=== PATIENT | female | born 2000 | race Caucasian/White ===

== ENCOUNTER 2022-12-17 01:32 | Emergency (ER) | payer BC, SELFPAY ==
[2022-12-17 01:42] VITALS: BP 131/90; PULSE 105; RESP 24; TEMP 36.7; O2SAT 98
[2022-12-17 02:01] VITALS: BP 109/75; PULSE 96; RESP 20; O2SAT 98
--- NOTE | 2022-12-17 02:06 | CRLHL7_ITS ---
For Patients: As a result of the Century Cures Act, medical imaging exams and procedure reports are released immediately into your electronic medical record. You may view this report before your referring provider. If you have questions, please contact your health care provider. INDICATION: Left flank pain, kidney stone suspected. COMPARISON: None TECHNIQUE: CT examination of the abdomen and pelvis was performed without intravenous contrast. Thin section axial images were obtained from the lung bases through the pubic symphysis. Oral contrast was not administered. Please note that all CT scans at this facility use dose modulation, iterative reconstruction, and/or weight-based dosing when appropriate to reduce radiation dose to as low as reasonably achievable. FINDINGS: LUNG BASES: The lung bases as visualized appear normal.The heart size is normal at the lung bases. LIVER/BILIARY SYSTEM:The liver is normal in size and configuration given the lack of intravenous contrast. There is no visible focal mass and there is no intra- or extra hepatic biliary ductal dilatation.The gall bladder appears normal. ADRENALS: Normal non-contrast appearance KIDNEYS, URETERS and BLADDER:The kidneys are normal in size. No definite intrarenal calculi on the right. There are intrarenal calculi on the left. There is left-sided hydronephrosis and hydroureter due to a calculus at the left ureterovesical junction measuring 2.0 x 4.0 millimeters. SPLEEN:Normal non-contrast appearance. PANCREAS: Normal non-contrast appearance. RETROPERITONEUM and MESENTERY: There is no mass, adenopathy or aortic aneurysm. GASTROINTESTINAL SYSTEM: There is no evidence of diverticulitis, colitis, mechanical obstruction, or appendicitis. The small bowel as visualized appears normal. PELVIS: No mass, adenopathy or free fluid. OSSEOUS STRUCTURES and ABDOMINAL WALL: There is an age-appropriate appearance of the osseous structures.No significant abdominal wall defect. OTHER: No free fluid or free air. IMPRESSION: Left-sided hydronephrosis and hydroureter due to a calculus at the left UVJ measuring 2 x 4 millimeters. Intrarenal calculi on the left. No definite calculi on the right. Please note that all CT scans at this facility use dose modulation, iterative reconstruction, and/or weight-based dosing when appropriate to reduce radiation dose to as low as reasonably achievable. Dictated by Prudencio Locke MD @ 12/17/2022 3:58:47 AM (Electronically Signed)
--- NOTE | 2022-12-17 02:08 | ED.GENADULT ---
HPI - General Adult General Chief complaint: Flank Pain Stated complaint: kidney stone Time Seen by Provider: 12/17/22 01:32 Source: patient and family Mode of arrival: ambulatory History of Present Illness HPI narrative: 21-year-old female with prior history of kidney stones twice in the past presents with left flank pain that started at around 11:45 a.m., worsening at 1:00 a.m.. It is accompanied by nausea but no vomiting. She has not tried taking any medication to help with her symptoms. No fevers. No prior history of kidney injury. First episode was in 2019 she believes it was 4-5 mm and did require lithotripsy and stent placement. She reports that this was through [facility], I do not have access to that CT scan. Her last episode was just over a month ago, states that this was 3 mm in size and resolved without any specialty treatment. She was told that she had additional stones at that time. No fevers, otherwise feeling well. No recent changes in her medications. No additional concerns today. ROS is negative for new gynecological other than her baseline chronic, GI, urinary, generalized or other review of systems times 12 systems per her report. ROS is notable for ADHD, anxiety disorder, chronic vaginal pain. Reports her home medications are amitriptyline, Vyvanse, paroxetine. Allergies to cats and mold but no drugs. Socially she is a nonsmoker. Family history noted and reviewed from the [facility]. Vaccines appropriate up-to-date. Surgical history notable for multiple prior ear infections resulting in T tubes and tympanoplasty. Related Data Home Medications Medication Instructions Recorded Confirmed lisdexamfetamine 10 mg capsule 10 mg PO QAM 11/06/22 12/15/22 (Vyvanse) paroxetine HCl 20 mg tablet (Paxil) 20 mg PO QDAY 11/06/22 12/15/22 Previous Rx's Medication Instructions Recorded ketorolac 10 mg tablet 10 mg PO QID PRN pain 5 days #20 11/06/22 tabs amitriptyline 25 mg tablet 25 mg PO QHS #60 tabs 12/15/22 Allergies Allergy/AdvReac Type Severity Reaction Status Date / Time cat dander Allergy Verified 12/15/22 14:23 mold Allergy Verified 12/15/22 14:23 [facility] Medical History Dysmenorrhea ?N94.6 - Dysmenorrhea, unspecified (ICD-10) Interstitial cystitis ?N30.10 - Interstitial cystitis (chronic) without hematuria (ICD-10) PMDD (premenstrual dysphoric disorder) ?F32.81 - Premenstrual dysphoric disorder (ICD-10) Sterilization consult ?Z30.09 - Encounter for other general counseling and advice on contraception (ICD-10) Vaginal pain ?R10.2 - Pelvic and perineal pain (ICD-10) Social History Smoking Status: Never smoker Do you use any of these nicotine containing products: None How often do you have a drink containing alcohol: never AUDIT-C Alcohol total score: 0 Non-prescribed substance use: denies use Exam Const: Vital Signs, click to edit/add: Vital Signs - 24 hr 12/17/22 01:42 12/17/22 02:01 12/17/22 03:20 Temperature 98.1 F Pulse Rate [Left P ulse Oximeter] 105 H 96 78 Respiratory Rate 24 20 18 Blood Pressure [Ri ght Upper Arm] 131/90 H 109/75 Pulse Oximetry 98 98 95 Oxygen Delivery Me thod Room Air Room Air Room Air Documenting provider has reviewed patient's vital signs: yes Common normals: no apparent distress General appearance: cooperative Orientation/consciousness: Yes awake Other: Appears mildly uncomfortable but cooperative HENMT: Common normals: normocephalic Head and scalp: normocephalic Face and sinus: normal facial exam Other: n [address] Eye: Common normals: conjunctivae normal General eye: normal appearance of both eyes Conjunctiva: conjunctiva(e) normal Resp: Common normals: normal respiratory effort, no use of accessory muscles and clear to auscultation bilaterally Effort & inspection: able to speak in complete sentences Auscultation: clear to auscultation bilaterally Cardio: Common normals: regular rate, regular rhythm, S1 normal heart sound, S2 normal heart sound and no murmurs Rate: regular rate Rhythm: regular rhythm Heart sounds: S1 normal and S2 normal GI: Common normals: Normal to inspection, nondistended, normoactive bowel sounds present, soft to palpation, non-tender and no hepatosplenomegaly Palpation: soft and no hepatosplenomegaly : Common normals: no CVA tenderness Bladder/kidney exam: no CVA tenderness Other: Tender left lower back but not specifically CVA area Back & Pelvis: Common normals: no CVA tenderness Extremity: Common normals: normal to inspection, normal capillary refill and no pedal edema Neuro: Sensorium/orientation: awake Speech: speech normal Motor exam: no movement abnormalities noted Psych: Other: Mildly withdrawn, lets her mother speak for her which is unusual at her age. Insight and judgment do seem intact. Skin: Common normals: no rashes or lesions noted General skin exam: no rashes or lesions noted Course Vital Signs Vital signs: Initial Vital Signs Temperature 98.1 F 12/17/22 01:42 Temperature Source Temporal Artery Scan 12/17/22 01:42 Pulse Rate 105 H 12/17/22 01:42 Pulse Rhythm Regular 12/17/22 01:42 Respiratory Rate 24 12/17/22 01:42 Blood Pressure 131/90 H 12/17/22 01:42 Blood Pressure Mean 103 12/17/22 01:42 Pulse Oximetry 98 12/17/22 01:42 Oxygen Delivery Method Room Air 12/17/22 01:42 Vital Signs Temperature 98.1 F 12/17/22 01:42 Pulse Rate 105 H 12/17/22 01:42 Respiratory Rate 24 12/17/22 01:42 Blood Pressure 131/90 H 12/17/22 01:42 Pulse Oximetry 98 12/17/22 01:42 Oxygen Delivery Method Room Air 12/17/22 01:42 Temperature 98.1 F 12/17/22 01:42 Pulse Rate 78 12/17/22 03:20 Respiratory Rate 18 12/17/22 03:20 Blood Pressure 109/75 12/17/22 02:01 Pulse Oximetry 95 12/17/22 03:20 Oxygen Delivery Method Room Air 12/17/22 03:20 Medical Decision Making MDM Narrative Medical decision making narrative: Story very suspicious for kidney stone. Cannot exclude other gynecological, GI or musculoskeletal etiologies. Recommend urinalysis, urine test. Basic metabolic panel, CBC. CT scan of the abdomen and pelvis without contrast. Will be given Toradol 15 mg IV, 4 mg of Zofran while we await these findings. Update: Good improvement of pain on Toradol. CT and lab findings reviewed with patient and family. She does have Flomax at home, declines an additional prescription for this. I discussed Tylenol and Toradol for pain control. Stone should pass without complication. Alarm symptoms including infection, fevers reviewed as indications to come back to ED. They do ask about management of future episodes. I let them know that currently there are no stones that would be obstructive size in her kidneys. It is absolutely okay to restart Flomax, ibuprofen and Tylenol for any symptoms that are suspicious for kidney stone and following up if they do not pass within a few days. They verbalized understanding and agreement. They also would like to reduce CT usage as would I in this young woman. Lab Data Lab results reviewed: Yes I reviewed the patient's lab results Lab results narrative: Reassuring Labs: Lab Results 12/17/22 12/17/22 Range/Units 02:00 02:35 WBC 9.40 (4.50-11.00) K/uL RBC 4.16 (4.00-5.20) m/uL Hgb 13.2 (12.0-16.0) gm/dL Hct 36.9 (33.0-51.0) % MCV 89 (80-100) fL MCH 32 (26-34) pg MCHC 36 (32-36) gm/dL RDW Coeff of Dania 11.0 L (11.5-15.5) % Plt Count 339 (140-440) K/uL Neut % (Auto) 54.2 (42.0-72.0) % Lymph % (Auto) 32.7 (20-44) % [place] % (Auto) 10.4 (0.0-11.0) % Eos % (Auto) 2.3 (0.0-7.0) % Baso % (Auto) 0.3 (0.0-3.0) % Neut # (Auto) 5.09 (1.7-7.0) K/uL Lymph # (Auto) 3.07 H (0.90-2.90) K/uL [place] # (Auto) 1.00 H (0.00-0.90) K/UL Eos # (Auto) 0.22 (0.00-0.50) K/uL Baso # (Auto) 0.03 (0.00-0.30) K/uL Sodium 140 (135-149) mmol/L Potassium 3.6 (3.6-5.1) mmol/L Chloride 106 (96-114) mmol/L Carbon Dioxide 27 (20-32) mmol/L BUN 14 (5-24) mg/dL Creatinine 0.7 (0.5-1.5) mg/dL Estimated GFR 125 ml/min Glucose 106 (60-115) mg/dL Calcium 9.1 (8.4-10.6) mg/dL HCG, Qual Negative (Negative) Urine Color Yellow (Yellow) Urine Appearance Slightly Cloudy A (Clear) Urine pH 6.5 (5.0-8.5) Ur Specific [place] 1.025 (1.000-1.030) Urine Protein Trace A (Negative) Urine Glucose (UA) Negative (Negative) Urine Ketones Trace A (Negative) Urine Blood Trace-intact A (Negative) Urine Nitrite Negative (Negative) Urine Bilirubin Negative (Negative) Urine Urobilinogen 0.2 (0.2-1.0) Ur Leukocyte Esterase 1+ A (Negative) Urine RBC 2-5 A (0-2) Urine WBC 0-2 (0-5) Ur Squamous Epith Cells Moderate A (None-Few) Calcium Oxalate Crystal Moderate A (None) Urine Bacteria Few A (None) Fine Granular Casts Few A (None) Imaging Data CT scan - abdomen: Attestation: I have reviewed the pertinent imaging results. My impression: 3 mm stone near left UVJ Radiologist's impression: IMPRESSION: Left-sided hydronephrosis and hydroureter due to a calculus at the left UVJ measuring 2 x 4 millimeters. Intrarenal calculi on the left. No definite calculi on the right. Discharge Plan Discharge Clinical Impression: Left ureteral stone Patient Disposition: Home w/ Parent or Adult Condition: Improved Instructions: Ureteral Stones (ED) Additional Instructions: I am glad that the pain has improved on Toradol. I will give you a prescription for more of these to have at home if needed. Take your Flomax as soon as you get home and continue on this once daily until the stone passes. The stone should pass within a week or 2. My suspicion is it will only be a few days since it is already made it to the junction of the ureter in the bladder. This stone is 4 x 2 mm, it should pass without complication. There are no signs of kidney dysfunction or infection. You may strain your urine if you like to help know when this stone has passed. It is okay to use Tylenol for pain as well. Drink lots of fluids to help the stone pass. If your pain is still bothersome after 10 days, please contact her primary care provider for Urology referral. Activity Level: No Restrictions Discharge Diet: Regular Prescriptions: No Action paroxetine HCl [Paxil] 20 mg tablet 20 mg PO QDAY Vyvanse 10 mg capsule 10 mg PO QAM ketorolac 10 mg tablet 10 mg PO QID PRN (Reason: pain) 5 Days Qty: 20 6RF amitriptyline 25 mg tablet 25 mg PO QHS Qty: 60 0RF Follow Up/Referrals: Provider,Not a Local [Referring] - Stand Alone Forms: [employer] Info Instructions
[2022-12-17] MEDS: KETOROLAC 15 MG/ML inj IVP (02:18)
[2022-12-17] MEDS: ONDANSETRON 2 MG/ML inj 4 MG IVP (02:18)
[2022-12-17 02:25] LABS: Appearance Urine Slightly Cloudy (Clear); Bilirubin Urine Negative (Negative); Blood Urine Trace-intact (Negative); Color Urine Yellow (Yellow); Glucose Urine Negative (Negative); Ketones Urine Trace (Negative); Leukocyte Esterase Urine 1+ (Negative); Nitrite Urine Negative (Negative); Protein Urine Trace (Negative); Specific Gravity Urine 1.025 (1.000-1.030); Urobilinogen Urine 0.2 (0.2-1.0); pH Urine 6.5 (5.0-8.5)
[2022-12-17 02:28] LABS: Bacteria Urine Few; Calcium Oxalate Crystals Urine Moderate; Squamous Epithelial Cell Urine Moderate (None-Few); WBC Urine 0-2 (0-5)
--- OUTSIDE RECORDS SUMMARY | 2022-12-17 02:28 | XMS_ITS | Continuity of Care Document ---
Author Name Unknown Organization [facility] Address [facility] - [address] [address]- Care Team Providers Care Cattle Driver Name Role Phone NONE, Primary Care Physician Unavailab le Encounter(s) 07/13/20 [address] [address] [place], [place] [address] Attending Physician: Marilu Villatoro MD
--- OUTSIDE RECORDS SUMMARY | 2022-12-17 02:28 | XMS_ITS | Continuity of Care Document ---
Author Name Unknown Organization [facility] Address [facility] [address] [place] [address]- Care Team Providers Care Fountain Manager Name Role Phone NONE, Primary Care Physician Unavailab le Encounter 08/16/21 - 08/18/21 [facility] [address] [place] [address]- Encounter Diagnosis Anxiety(Discharge Diagnosis) - 08/16/21 Small intestinal bacterial overgrowth (SIBO)(Discharge Diagnosis) - 08/16/21 Diarrhea(Discharge Diagnosis) - 08/16/21 Attending Physician: Marilu Villatoro MD Referring Physician: Marilu Villatoro MD Allergies, Adverse Reactions, Alerts No Known Medication Allergies Assessment and Plan Extracted from: Title:diarrhea Author:Marilu Villatoro MD Date:10/16/20 Anxiety??(F41.9) ??Discussed reframing Patient already on medications Future consider counseling??and looking into other??strategies to improve??resilience Diarrhea??(R19.7) ??We will have her do an herbal treatment for small intestinal bacterial overgrowth??as this has helped??in the past when she has had the diarrhea.?It is called Spectrum AR and Spectrum BR which can be found at the nutri-dyn website.?She should take 2 tablets twice a day of each??bottle. ? She is also interested in doing??more testing since the stool testing??and SIBO testing was not as helpful the summer.?We??decided on doing some nutrition testing??so that we can get an overall sense of exactly what??type of supplementation she is needing??at this time??to help support health in her body.?? I sent the kit to her parents' home and she will get it done over [place] break and then follow up for results. We also discussed??returning to traditional GI physician??to see if there is anything new in the field that may be useful.?She has had an extensive GI work-up in the past but that was??over 5 years ago. The future we could also consider MRT food sensitivity testing to see if there is more intervention intervention we need to be doing there. She has tried Iberogast in the past to help with motility??and does not feel it worked very well. Small intestinal bacterial overgrowth (SIBO)??(K63.89) Medications adapalene-benzoyl peroxide 0.1%-2.5% topical gel 0 Refill(s), Type: Soft Stop Start Date: 09/04/20 Status: Ordered folic acid ( 0.8 mg ), Oral, daily, 0 Refill(s), Type: Maintenance Start Date: 07/13/20 Status: Ordered melatonin 3 mg oral tablet = 1 tab(s) ( 3 mg ), Oral, hs, 0 Refill(s), Type: Maintenance Start Date: 07/13/20 Status: Ordered PARoxetine 20 mg oral tablet = 1 tab(s) ( 20 mg ), Oral, daily, # 30 tab(s), 0 Refill(s), Type: Maintenance Start Date: 07/13/20 Status: Ordered Slow Fe (as elemental iron) 45 mg oral tablet, extended release = 1 tab(s) ( 45 mg ), Oral, daily, 0 Refill(s), Type: Maintenance Start Date: 07/13/20 Status: Ordered Vitamin B12 1000 mcg oral tablet = 1 tab(s) ( 1,000 mcg ), Oral, daily, 0 Refill(s), Type: Maintenance Start Date: 07/13/20 Status: Ordered Vitamin D3 5000 intl units oral tablet ( 125 mcg ), Oral, daily, 0 Refill(s), Type: Maintenance Start Date: 07/13/20 Status: Ordered Vyvanse 10 mg oral capsule = 1 cap(s) ( 10 mg ), Oral, qam, 0 Refill(s), Type: Maintenance Start Date: 07/13/20 Status: Ordered Problem List Diagnosis Diagnosis Type Effective Dates Health Status Clinical Service Informant Diarrhea Discharge Diagnosis 08/16/21 Non-Specified Anxiety Discharge Diagnosis 08/16/21 Non-Specified Small intestinal bacterial overgrowth (SIBO) Discharge Diagnosis 08/16/21 Non-Specified Vital Signs Most recent to oldest [Reference Range]: 1 Allergies Verified? Yes (08/16/21 3:38 PM) Medication History Verified? Yes (08/16/21 3:38 PM) Social History Social History Type Response Smoking Status Never (less than 100 in lifetime) entered on: 09/04/20 Sex
--- OUTSIDE RECORDS SUMMARY | 2022-12-17 02:28 | XMS_ITS | Continuity of Care Document ---
Author Name Unknown Organization [facility] Address [address] [address] [place] [address] Phone Care Team Providers Care Business Analytics Specialist Name Role Phone Krista MOSES, Jaguar Unavailable Unavaila ble Allergies, Adverse Reactions, Alerts Substance Reaction Status Criticality No Known Allergies Active No Inform ation WARNIN allergy(ies) could not be collected because the type is not supported. Please contact the source practice for further details. Medications Medication Instructions Dosage Effective Dates (start - stop) Status Comments Paxil 20 mg tablet take 1 tablet by ora l route every day 20 MG - Active amitriptyline 25 mg tablet take 1 tablet by oral route every day at bedtime 25 MG - Active Vyvanse 10 mg capsule take 1 capsule by oral route every day in the morning 10 MG - Active Iron (ferrous sulfate) 325 mg (65 mg iron) tablet take 1 by Oral route once 1 - Active Procedures Procedure Date Colonoscopy Flex; W/bx 1/mx Level Iv-surg Path Gross/micro 23 Routine Serum Collection New Level 4 Breath Test Fructose Offic/outpt E&m Estab Mod-hi 2 17 Offic/outpt E&m Estab Mod-hi 2 15 Offic/outpt E&m Estab Mod-hi 2 15 Ugi Endo; W/bx 1/mx Ugi Endo; W/endo Ultrasound Ex 14 Offic/outpt E&m New Mod Sever 4 Advance Directives Directive Yes / No Effective Date File Name No Information Encounters Encounter Description Practice Location Reason(s) For Visit Diagnoses Date Provider Providers Copied on Encounter [facility], [address] [address], [place], [place], [id number], [place] tel:[phone] [facility] No Information 3 Krista Montesinos. [address] [facility], [facility] [address], [place], [id number], [place]. tel:[phone] [facility], [address] [address], [place], [place], [id number], [place] tel:[phone] [facility] GI Symptoms or Concerns (chief complaint) Noninfective gastroenterit is and colitis, unspecifiedDi arrhea, unspecifiedLy mphocytic colitisDiarrh ea, unspecified 3 Abel Mahmood. [address] [facility], [facility] [address], [place], [id number], [place]. tel:[phone] Referring Provider: Charmaine Irwin, [address] [place] [address], [place], [address]. tel:[phone] [facility], [address] [address], [place], [id number], [place] tel:[phone] [facility] Change in bowel habit 3 Krista Montesinos. [address] [facility], [facility] [address], [place], [place], [id number], [place]. tel:[phone] Referring Provider: Charmaine Irwin, [address] , [place], [address]. tel:[phone] [facility], [address] [address], [place], [id number], [place] tel:[phone] [facility] No Information 3 Krista Montesinos. [address] [facility], [facility] [address] [place], [place], [id number], [place]. tel:[phone] New Level 4 [facility], [address] [address], [place], [id number], [place] tel:[phone] [facility] GI Symptoms or Concerns (chief complaint) Change in bowel habitsChronic diarrheaLymph ocytic colitisAcute COVID-19 3 Krista Montesinos. [address] [facility], [facility] [address] [place], [place], [id number], [place]. tel:[phone] Referring Provider: Rebecca DIXON, [address] [place] [address], [place], [address]. tel:[phone] [facility], [address] [address], [place], [id number], [place] tel:[phone] [facility] No Information 2 Aravind Flannery. [address] [facility], [facility] [address], [place], [place], [id number], [place]. tel:[phone] [facility], [address] [address], [place], [id number], [place] tel:[phone] [facility] Chronic idiopathic constipation 7 No Information Offic/outpt E&m Estab Mod-hi 2 [facility], [address] [address], [place], [id number], [place] tel:[phone] [facility] GI Symptoms or Concerns (chief complaint) Chronic idiopathic constipation 7 No Information Referring Provider: Referral Self. Offic/outpt E&m Estab Mod-hi 2 [facility], [address] [address], [place], [id number], [place] tel:[phone] [facility] GI Symptoms or Concerns (chief complaint) Constipation, unspecified constipation typeGastropar esis 5 Umberto So. [address] [facility], [facility] [address], [place], [id number], [place]. tel:[phone] Referring Provider: Stevo Lua, [address], [place], [address]. tel:[phone] Offic/outpt E&m Estab Mod-hi 2 [facility], [address] [address], [place], [id number], [place] tel:[phone] [facility] GI Symptoms or Concerns (chief complaint) Nausea Alone 5 No Information Referring Provider: Charmaine Irwin, [address] , [place], [address]. tel:[phone] [facility], [address] [address], [place], [place], [address], [place] tel:[phone] [facility] No Information 4 Millie Jurado. [address] [place] [address], [id number], [place]. [phone] Referring Provider: Stevo Lua, [address], [place], [address]. tel:[phone] [facility], [address] [address], [facility] [facility] [place], [id number], [place] tel:[phone] [facility] Common bile duct stone 4 Millie Jurado. [address] [place] [address], [place] [address], [place], [place], [id number], [place]. tel:[phone] Referring Provider: Referral Self. Offic/outpt E&m New Mod Sever [facility], [address] [address], [place], [id number], [place] tel:[phone] [facility] No Information 4 Millie Jurado. [address] [place] [address], [address], [id number], [place]. tel:[phone] Referring Provider: Stevo Lua, [address], [place], [address]. tel:[phone] Family History Family Member Type Diagnosis Age At Onset Mother Problem (finding) Thyroid disorder Mother Problem (finding) Colon polyps Father Problem (finding) Maternal history of cleopatra betes mellitus Immunizations Vaccine Date Status Comments Afluria Qd administered Note: [facility] bi-directional interface ; Source: Other Registry SARS-COV-2 (COVID-19) vaccin e, mRNA, spike protein, LNP, bivalent booster, preservative free, 30 mcg/0.3 mL dose, hortensia-sucrose formulation administered Note: [facility] bi-d irectional interface ; Source: Other Registry SARS-COV-2 (COVID-19) vaccin e, mRNA, spike protein, LNP, preservative free, 30 mcg/0.3mL dose, hortensia-sucrose formulation administered Note: [facility] C bi- directional interface ; Source: Other Registry SARS-COV-2 (COVID-19) vaccin e, mRNA, spike protein, LNP, preservative free, 30 mcg/0.3mL dose administered Note: [facility] bi-direct ional interface ; Source: Other Registry tetanus toxoid, reduced diphtheria toxoid, and acellular pertussis vaccine, adsorbed administered Note: [facility] b i-directional interface ; Source: Other Registry SARS-COV-2 (COVID-19) vaccin e, mRNA, spike protein, LNP, preservative free, 100 mcg/0.5mL dose or 50 mcg/0.25mL dose administered Note: [facility] bi -directional interface ; Source: Other Registry SARS-COV-2 (COVID-19) vaccin e, mRNA, spike protein, LNP, preservative free, 100 mcg/0.5mL dose or 50 mcg/0.25mL dose administered Note: [facility] bi -directional interface ; Source: Other Registry Afluria Qd administered Note: [facility] bi-directional interface ; Source: Other Registry Afluria Qd administered Note: [facility] bi-directional interface ; Source: Other Registry Afluria Qd administered Note: [facility] bi-directional interface ; Source: Other Registry Afluria Qd administered Note: [facility] bi-directional interface ; Source: Other Registry meningococcal oligosaccharid e (groups A, C, Y and W-135) diphtheria toxoid conjugate vaccine (MCV4O) administered Note: [facility] bi-direct ional interface ; Source: Other Registry Afluria Qd administered Note: [facility] bi-directional interface ; Source: Other Registry Influenza, injectable, quadrivalent, preservative free, 3 yrs or older administered Source: Other Provid er Afluria Qd administered Note: [facility] bi-directional interface ; Source: Other Registry Afluria Qd administered Note: [facility] bi-directional interface ; Source: Other Registry Influenza virus vaccine, injectable, quadrivalent, split virus, preservative free, 3 years or older Fluarix Quad administered Source: Other Provider meningococcal oligosaccharid e (groups A, C, Y and W-135) diphtheria toxoid conjugate vaccine (MCV4O) administered Note: [facility] bi-direct ional interface ; Source: Other Registry Afluria Qd administered Note: [facility] bi-directional interface ; Source: Other Registry influenza, live, intranasal, quadrivalent administered Note: [facility] bi-direct ional interface ; Source: Other Registry tetanus toxoid, reduced diphtheria toxoid, and acellular pertussis vaccine, adsorbed administered Note: [facility] b i-directional interface ; Source: Other Registry Influenza, seasonal, injecta ble, preservative free administered Note: [facility] bi-direct ional interface ; Source: Other Registry Influenza, seasonal, injecta ble, preservative free administered Note: [facility] bi-direct ional interface ; Source: Other Registry Influenza, seasonal, injecta ble, preservative free administered Note: [facility] bi-direct ional interface ; Source: Other Registry Afluria Qd administered Note: [facility] bi-directional interface ; Source: Other Registry Novel [id number], injectable administered Note: [facility] bi-direct ional interface ; Source: Other Registry Influenza, seasonal, injecta ble, preservative free administered Note: [facility] bi-direct ional interface ; Source: Other Registry Influenza, seasonal, injectable administe red Note: [facility] bi- directional interface ; Source: Other Registry Influenza, seasonal, injectable administe red Note: [facility] bi- directional interface ; Source: Other Registry poliovirus vaccine, inactivated administe red Note: [facility] bi- directional interface ; Source: Other Registry measles, mumps and rubella v irus vaccine administered Note: [facility] bi-direct ional interface ; Source: Other Registry diphtheria, tetanus toxoids and acellular pertussis vaccine administered Note: [facility] b i-directional interface ; Source: Other Registry Payers Payer name Insurance type Covered republican ID Authoriza ticathie(s) [id number] Social History Type Description Quantity Date Captured Comments Sex Female Smoking Status No Information Chief Complaint And Reason For Visit No Information Reason For Referral Reason For Referral No Information Plan Of Treatment Date Type Action Status Referral Ordered: Celiac: TTG IgA + Total IgA Appointment date/timeframe: 12/05/2022 ordered Referral Ordered: Colonoscopy Appointment date/timeframe: 12/05/2022 ordered Referral Ordered: Gastric Emptying Study (4 Hours) Appointment date/timeframe: 03/22/2015 ordered Referral Ordered: ERCP Appointment date/timeframe: 07/31/2014 ordered Appointment Renata Herrmann BOOKED History Of Present Illness Encounter Date Complaint History Of Prese nt Illness GI Symptoms or Concerns GI Symptoms or Concerns This is a virtual visit. The visit was conducted using [email or web address] video call with the patient. 21-year-old female was sent for consultation by her PCP, Rebecca DIXON for further evaluation of changes in bowel habits. She was last seen in our clinic in 2016. Patient has acute symptomatic COVID-19 infection. She is not feeling well but was able to complete the interview. Briefly, patient had history of viral infection in 2013 when she was 13 years old. 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 She had significant symptoms since then and has seen non allopathic medical doctors and was found to have multiple food intolerances such as colon, soy, dairy, wheat etc. and she was on restricted diet. 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 Eventually all her upper GI symptoms has resolved but now shifted to lower GI. She had chronic constipation she described her symptoms as a sense of incomplete emptying but all she had was loose stools. Prior laboratory workup were negative at that point. In mid 2021, her symptoms have completely shifted gear and she had 10-12 episodes of nonbloody loose bowel movements. Slowly she is also started noticing some traces of blood in her stools. She met with a PCP who ordered a colonoscopy. She had it done locally but unable to complete the colonoscopy due to intolerance to conscious sedation. But random biopsies from the left colon showed lymphocytic colitis. She was treated with budesonide 9 milligram for 1 month, 6 milligram for 1 month and 3 milligram for 1 month but his symptoms persisted. Her local Meeting Facilitator extended the treatment which she tapered on the last day of August 2022. She still continues to have multiple episodes of loose stools despite taking budesonide therapy for almost 6 months. Her weight has been stable and appetite is normal. No family history of celiac, IBD or GI cancers. She denied abdominal pain, nausea / vomiting or any other constitutional symptoms.Given persistent diarrhea despite 6 months of budesonide therapy, she is here for further evaluation. GI Symptoms or Concerns Renata lu is a 16-year-old female here for followup for chronic constipation, nausea, and gastroparesis. She was last seen by my colleague Dr. Shipman back in 2014. 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 She also has a history of chronic constipation. In the past, she was started on erythromycin as a prokinetic agent, but this exacerbated her symptoms so was stopped. In the interim, Renata has been seen by naturopaths and functional disorders physicians and had a slew of testing including breath test for small bowel bacterial overgrowth, fecal microbiota testing, and different food allergen testing. Based on these results, the mother started Renata on a particular diet based on LEAP testing. Basically, Renata is consuming a diet that is free of lactose, gluten, corn, and other particular foods. She was also started on a psyllium supplement at one teaspoon t GI Symptoms or Concerns This is a 14-year-old white girl with many gastrointestinal symptoms, came for followup.Renata is a 14-year-old young lady with following problem.1. Generalized anxiety disorder.2. History of gastroparesis, unresponsive to a trial of erythromycin.3. Chronic constipation.4. Self-diagnosed food sensitivity on multiple elimination diet.5. Vitamin D deficiency.Renata was previously seen by my partner, Dr. Walter Mckeon in May 2014. She used to have chronic refractory nausea unresponsive to trial of various acid lalito Zofran. Hence, she underwent gastric emptying study on 03/22/2015, which showed gastric emptying of 29.9% at two hours (normal more than 50%) and gastric emptying at four hour with 72.9% (normal more than 90 at four hours). I note this gastric emptying was done with scrambled egg and two slices of gluten free bread and eight ounces of juices. A trial of erythromycin made her symptoms and cramps worse, hence it was discontinued afte GI Symptoms or Concerns This is an initial evaluation for abdominal pain as well as a followup from previous GI issues. She is a 14-year-old young lady. In July of last year, she was admitted to the hospital for abdominal pain symptoms. This was at [facility]. There were concerns that there may be an impacted stone and the gallbladder and bile duct system, so an upper endoscopy and endoscopic ultrasound were done. No stone was identified and biopsies from the duodenum came back as normal. She seemed to improve. However in August, she developed an acute gastroenteritis and was sick for several days. Sometime after this, she developed new symptoms of nausea. She has routine nausea without emesis. This can be any time of the day. This has been occurring for 3 to 4 months. She can eat and has not had weight loss. She describes different types of uncomfortableness that can go along with the nausea, but no specific pain right now. Stooling can help, however, she has had some constipation during Functional Status Date Functional Assessmen t No Information Instructions Date Instruction Additional Infor reinaldo Colon Cancer Prevention Related to Noninfective gastroenteritis and colitis, unspecified - Check Celiac serol rl- Plan for diagnostic ileo-colonoscopy with TI and random colon bxs- If she has persistent microscopic colitis, then she will need extended treatment with low dose budesonide or discuss other options. - If the biopsies are negative for IBD/persistent microscopic colitis and showed negative Celiac serology, then we can consider a trial of Viberzi 75 mg 1po BID for suspected IBS-D- Return to clinic in 2-4 weeks after the colonoscopy.- In the interim, recommended to take OTC Imodium 2 mg 1-2 pills daily as needed for her diarrhea. Related to Change in bowel habits Please submit stool calprotectin test.Stop the probiotics.Try the low fructose and low FODMAPs diet for at least 4 weeks. Related to Chronic idiopathic constipation Fructose Intolerance Diet Relate d to Chronic idiopathic constipation Low FODMAPS diet Related to Commercial Real Estate Manager nino idiopathic constipation 1. Stress management counseling and possible anti-depressant to be considered.2. Prevention of constipation was discussed in detail. I advised to use MiraLax 17 g daily along with stimulant such as senna or bisacodyl daily or every other day.3. I encouraged to use bowel cleanout with two liters of Gatorade and 238 g of MiraLax at least three times a year, if necessary more often could do a bowel clean monthly if necessary.4. Mother's questions about gastrointestinal dysmotility, gastroparesis were answered.5. Follow up as needed.6. Continue vitamin D supplement 6000 units daily for several months. To consider repeating vitamin D level in three to six months. Related to Constipation, unspecified constipation type Constipation in children Related to Constipation, unspecified constipation type Take one capful/pack et (17 grams) of Miralax daily Related to Constipation, unspecified constipation type The description of h er symptoms sounds as if it maybe related to delayed gastric emptying from a post viral gastroparesis. I would recommend doing a gastric emptying scan. If this is abnormal, we discussed treatment with low dose erythromycin. We will follow as needed. Please feel free to contact us if you have any questions on her care. Related to Nausea Alone Gastric Emptying Study (4 Hours) Assessments Type Assessment Date No Information Patient Care Teams Name Effective Dates (start - stop) Status Members No Information
[2022-12-17 02:29] LABS: Fine Granular Casts Urine Few; HCG Qualitative* Negative (Negative)
--- OUTSIDE RECORDS SUMMARY | 2022-12-17 02:29 | XMS_ITS | Summary of Care ---
Author Name Unknown Organization [facility] is Address [address] [place] [address]- Care Team Providers Care Seam Taper Machine Name Role Phone Charmaine De La Fuente Primary Care Physician Encounter DesignMyNightIvyDate Date(s): 11/01/18 - 11/01/[address] [address]- Discharge Disposition: Home/Self Care Attending Physician: Edson Bernal MD Admitting Physician: Edson Bernal MD Referring Physician: Charmaine De La Fuente MD Vital Signs Most recent to oldest [Reference Range]: 1 Chief Complaint post op (11/01/18 10:28 AM) Concerns about Pain No (11/01/18 10:28 AM) Weight 44.05 kg (11/01/18 10:28 AM) DOSING WEIGHT 44.050 kg (11/01/18 10:28 AM) Adjusted body weight 47.96 kg (11/01/18 10:28 AM) [place] Body Weight Percentage 82.00 % 1 (11/01/18 10:28 AM) 1Result Comment: Automatically calculated as a result of charting a weight of 44.05 kg. Problem List Condition Effective Dates Status Health Status Inform ant Pars tensa central perforation(Confirmed) Active Conductive hearing loss(Confirmed) Active Disorder of skin of vulva(Confirmed) 11/28/11 Active Allergies, Adverse Reactions, Alerts Substance Reaction Severity Status Dairy Digest Active Gluten Active Medications Ciprodex 0.3%-0.1% otic suspension See Instructions, 3 drops into right ear twice a day for 10 days., # 7 mL, 3 Refill(s), [employer] #[id number] Start Date: 11/01/18 Status: Ordered Reason for Visit P/O for Tympanoplasty 09/27/18
--- OUTSIDE RECORDS SUMMARY | 2022-12-17 02:29 | XMS_ITS | Summary of Care ---
Author Name Unknown Organization [facility] is Address [address] [place] [address]- Care Team Providers Care Pm Technician Name Role Phone Stevo Mclain Primary Care Physician Encounter [employer] Date(s): 04/09/16 - 04/09/[address] [address]- Discharge Diagnosis: Pars tensa central perforation Discharge Diagnosis: Conductive hearing loss Discharge Disposition: Home/Self Care Attending Physician: Edson Bernal MD Admitting Physician: Edson Bernal MD Referring Physician: Stevo Mclain Vital Signs Most recent to oldest [Reference Range]: 1 Weight 44.55 kg (04/09/16 9:12 AM) DOSING WEIGHT 44.550 kg (04/09/16 9:12 AM) Problem List Condition Effective Dates Status Health Status Inform ant Pars tensa central perforation(Confirmed) Active Conductive hearing loss(Confirmed) Active Disorder of skin of vulva(Confirmed) 11/28/11 Active Allergies, Adverse Reactions, Alerts Substance Reaction Severity Status Dairy Digest Active Gluten Active Medications No data available for this section Results No data available for this section Immunizations No data available for this section Procedures No data available for this section Social History No data available for this section Assessment and Plan No data available for this section Reason for Visit annual ear check- sees for DELAROSA
--- OUTSIDE RECORDS SUMMARY | 2022-12-17 02:29 | XMS_ITS | Continuity of Care Document ---
Author Name Unknown Organization [facility] Address [facility] - [address] [address]- Care Team Providers Care Home Health Care Coordinator Name Role Phone NONE, Primary Care Physician Edd law Encounter 09/04/20 - 09/06/20 [facility] [address] [place] [address]- [facility] Encounter Diagnosis Chronic diarrhea(Discharge Diagnosis) - 09/04/20 Food intolerance(Discharge Diagnosis) - 09/04/20 Attending Physician: Marilu Villatoro MD Referring Physician: Marilu Villatoro MD Allergies, Adverse Reactions, Alerts No Known Medication Allergies Assessment and Plan Extracted from: Title:diarrhea follow up Author:Byron Villatoro MD Date:09/04/20 Chronic diarrhea??(K52.9) ??At this point I would not recommend taking any daily??supplementation to prevent??episodes from happening. I would keep a journal to see??when she is having difficulties.?If??she does well for several months at a time I would just treat??her episodes when they occur??with 1 month of the spectrum ARN spectrum BR treatment??that we have done before.?And then if that does not work we could do testing. If??it turns out that she seems to have??issues every month or every couple of months then I would recommend we try taking spectrum ARN spectrum BR??2 tablets of each twice daily??for 1 week on and 3 weeks off. In regards her chronic??abdominal issues as well as multiple food intolerances??we discussed??leaky gut.?Also discussed how would we know when her bed is healed and she could try??adding some of these previous??food intolerances??back into her diet. We ordered??from [employer] an intestinal permeability test.?We will follow up when her test results??are available. If she has a leaky gut we can treat??with some gut healing supplements. If??her testing comes back normal she may??try??reintroducing some of the foods that she has intolerances to??1 at a time. Discussed that she should not add in any foods that she has had a rash or swelling type of reaction to. Food intolerance??(K90.49) ??see plan above Functional Status 09/04/20 Recent Travel History No recent travel Family Member Travel History No recent t ravel Other Exposure to Infectious Disease Unk nown Medications adapalene-benzoyl peroxide 0.1%-2.5% topical gel 0 [...] Effective Dates Health Status Clinical Service Informant Chronic diarrhea Discharge Diagnosis 09/04/20 Non-Specified Food intolerance Discharge Diagnosis 09/04/20 Non-Specified Vital Signs Most recent to oldest [Reference Range]: 1 Allergies Verified? Yes (09/04/20 12:59 PM) Medication History Verified? Yes (09/04/20 12:59 PM) Social History Social History Type Response Smoking Status Never (less than 100 in lifetime) entered on: 09/04/20 Sex
--- OUTSIDE RECORDS SUMMARY | 2022-12-17 02:29 | XMS_ITS | Continuity of Care Document ---
Author Name Unknown Organization [facility] Address [facility] - [address] [address]- Care Team Providers Care Silo Erector Name Role Phone NONE, Primary Care Physician Unavailab le Encounter 07/13/20 - 07/15/20 [facility] [address] [place] [address]- [facility] Encounter Diagnosis Diarrhea(Discharge Diagnosis) - 07/13/20 Constipation(Discharge Diagnosis) - 07/13/20 Gastroparesis(Discharge Diagnosis) - 07/13/20 Attending Physician: Marilu Villatoro MD Referring Physician: Marilu Villatoro MD Allergies, Adverse Reactions, Alerts No Known Medication Allergies Assessment and Plan Extracted from: Title:diarrhea Author:Marilu Villatoro MD Date:1 Constipation??(K59.00) Diarrhea??(R19.7) ??will treat empirically for SIBO since she did well after having that treatment before and she is more interested in doing testing once she gets home for a stretch from end of July to September. recommended taking spectrum BR and spectrum AR from the [employer] website.?? take 2 tabs BID of both meds for a month. stop the high potency bacillus for now and may restart it in a few weeks. Recommended being seen in person by the local primary care clinic for the abdominal pain.?? She can send me any labs they draw or stool cultures??and let me know what they find.?? if she is still having symptoms in a few weeks then I can drop ship GI effects and/or SIBO testing from [facility] to her home where it will be easier for her to collect.?? consider having her do stress reduction activities or vagal stimulation activities. Gastroparesis??(K31.84) ??will add iberogast for motility You may purchase supplements anywhere you like. ??Try to find good, quality supplements that are regulated (i.e. [facility] approved). Pharmacies and drug stores are good sources. Additional online resources: www.[employer] ??Use to get a discount on professional grade supplements. www.[employer] ??This will also have a discount on professional grade supplements. www.[employer] Functional Status 07/13/20 Recent Travel History No recent travel Family Member Travel History No recent t ravel Other Exposure to Infectious Disease Unk nown Medications folic acid ( 0.8 mg ), Oral, [...] Diagnosis Diagnosis Type Effective Dates Health Status inical Service Informant Diarrhea Discharge Diagnosis 07/13/20 Non-Specified Gastroparesis Discharge Diagnosis 07/13/20 Non-Specified Constipation Discharge Diagnosis 07/13/20 Non-Specified Vital Signs Most recent to oldest [Reference Range]: 1 Allergies Verified? Yes (07/13/20 9:09 AM) Medication History Verified? Yes (07/13/20 9:09 AM) Social History Social History Type Response Smoking Status Never smoker Sex
--- OUTSIDE RECORDS SUMMARY | 2022-12-17 02:29 | XMS_ITS | Summary of Care ---
Author Name Unknown Organization [facility] Address Unknown Care Team Providers Care Battery Hand Name Role Phone Charmaine De La Fuente Primary Care Physician Encounter [facility] Date(s): 04/24/20 - 04/24/20 [facility] Encounter Diagnosis Conductive hearing loss, bilateral(Discharge Diagnosis) - 04/24/20 Discharge Disposition: Home/Self Care Attending Physician: Edson Bernal MD Admitting Physician: Edson Bernal MD Referring Physician: Charmaine De La Fuente MD Vital Signs Most recent to oldest [Reference Range]: 1 Concerns about Pain No (04/24/20 9:09 AM) Weight 47.2 kg (04/24/20 9:09 AM) DOSING WEIGHT 47.200 kg (04/24/20 9:09 AM) Problem List Condition Effective Dates Status Health Status Inform ant Pars tensa central perforation(Confirmed) Active Conductive hearing loss(Confirmed) Active Disorder of skin of vulva(Confirmed) 11/28/11 Active Allergies, Adverse Reactions, Alerts Substance Reaction Severity Status Dairy Digest Active Gluten Active Reason for Visit yearly chk/audio
--- OUTSIDE RECORDS SUMMARY | 2022-12-17 02:29 | XMS_ITS | Continuity of Care Document ---
Author Name Unknown Organization [facility] Address [address] [address] [place] [address] Phone Care Team Providers Care Stock Selector Name Role Phone Krista MOSES, Jagura Unavailable Unavaila ble Allergies, Adverse Reactions, Alerts [...] Diagnoses Date Provider Providers Copied on Encounter [facility], [address] [address], [place], [place], [id number], [place] tel:[phone] [facility] No Information 3 Krista Montesinos. [address] [facility], [facility] [address], [place], [id number], [place]. tel:[phone] [facility], [address] [address], [place], [id number], [place] tel:[phone] [facility] GI Symptoms or Concerns (chief complaint) Noninfective gastroenterit is and colitis, unspecifiedDi arrhea, unspecifiedLy mphocytic colitisDiarrh ea, unspecified 3 Abel Mahmood. [address] [facility], [facility] [address], [place], [id number], [place]. tel:[phone] Referring Provider: Charmaine Irwin, [address] [place] [address], [place], [address]. tel:[phone] [facility], [address] [address], [place], [id number], [place] tel:[phone] [facility] Change in bowel habit 3 Krista Montesinos. [address] [facility], [facility] [address], [place], [place], [id number], [place]. tel:[phone] Referring Provider: Charmaine Irwin, [address] , [place], [address]. tel:[phone] [facility], [address] [address], [place], [id number], [place] tel:[phone] [facility] No Information 3 Krista Montesinos. [address] [facility], [facility] [address], [place], [id number], [place]. tel:[phone] New Level 4 [facility], [address] [address], [place], [id number], [place] tel:[phone] [facility] GI Symptoms or Concerns (chief complaint) Change in bowel habitsChronic diarrheaLymph ocytic colitisAcute COVID-19 3 Krista Montesinos. [address] [facility], [facility] [address], [place], [id number], [place]. tel:[phone] Referring Provider: Rebecca DIXON, [address] [place] [address], [place], [address]. tel:[phone] [facility], [address] [address], [place], [id number], [place] tel:[phone] [facility] No Information 2 Aravind Flannery. [address] [facility], [facility] [address], [place], [place], [id number], [place]. tel:[phone] [facility], [address] [address], [place], [id number], [place] tel:[phone] [facility] Chronic idiopathic constipation 7 No Information Offic/outpt E&m Estab Mod-hi 2 [facility], [address] [address], [place], [id number], [place] tel:[phone] [facility] GI Symptoms or Concerns (chief complaint) Chronic idiopathic constipation 7 No Information Referring Provider: Referral Self. Offic/outpt E&m Estab Mod-hi 2 [facility], [address] [address], [place], [id number], [place] tel:[phone] [facility] GI Symptoms or Concerns (chief complaint) Constipation, unspecified constipation typeGastropar esis 5 Umberto So. [address] [facility], [facility] [address], [place], [id number], [place]. tel:[phone] Referring Provider: Stevo Lua, [address], [place], [address]. tel:[phone] Offic/outpt E&m Estab Mod-hi 2 [facility], [address] [address], [place], [id number], [place] tel:[phone] [facility] GI Symptoms or Concerns (chief complaint) Nausea Alone 5 No Information Referring Provider: Charmaine Irwin, [address] , [place], [address]. tel:[phone] [facility], [address] [address], [place], [id number], [place] tel:[phone] [facility] No Information 4 Millie Jurado. [address] [place] [address], [id number], [place]. [phone] Referring Provider: Stevo Lua, [address], [place], [address]. tel:[phone] [facility], [address] [address], [place], [id number], [place] tel:[phone] [facility] Common bile duct stone 4 Millie Jurado. [address] [place] [address], [place] [address], [place], [place], [id number], [place]. tel:[phone] Referring Provider: Referral Self. Offic/outpt E&m New Mod Sever [facility], [address] [address], [place], [id number], [place] tel:[phone] [facility] No Information 4 Millie Jurado. [address] [place] [address], [address], [id number], [place]. tel:[phone] Referring Provider: Stevo Lua, [address], [place], [address]. tel:[phone] Family History Family Member Type Diagnosis Age [...] bi-directional interface ; Source: Other Registry Novel [id number], injectable administered Note: [facility] bi-direct ional interface [...] Insurance type Covered republican ID Authoriza ticathie(s) [id number] Social History Type Description Quantity Date Captured [...] virtual visit. The visit was conducted using Vizy video call with the patient. 21-year-old female [...] month but his symptoms persisted. Her local [employer] extended the treatment which she tapered on [...] for abdominal pain symptoms. This was at [facility]. 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 Stress management counseling [...]
--- OUTSIDE RECORDS SUMMARY | 2022-12-17 02:29 | XMS_ITS | Summary of Care ---
Author Name Unknown Organization [facility] is Address [address] [place] [address]- Care Team Providers Care Body Bumper Name Role Phone Charmaine De La Fuente Primary Care Physician Encounter [facility] Date(s): 11/22/18 - 11/22/18 [address] [place] [place] [address]- Discharge Disposition: Home/Self Care Attending Physician: Edson Bernal MD Admitting Physician: Edson Bernal MD Referring Physician: Charmaine De La Fuente MD Vital Signs Most recent to oldest [Reference Range]: 1 Chief Complaint follow up (11/22/18 9:07 AM) Concerns about Pain No (11/22/18 9:07 AM) Height 157.4 cm (11/22/18 9:07 AM) Weight 44.4 kg (11/22/18 9:07 AM) DOSING WEIGHT 44.400 kg (11/22/18 9:07 AM) Adjusted body weight 47.78 kg (11/22/18 9:07 AM) [place] Body Weight 53.30 kg 1 (11/22/18 9:07 AM) [place] Body Weight Percentage 83.00 % 2 (11/22/18 9:07 AM) BSA 1.393 m2 (11/22/18 9:07 AM) Body Mass Index 17.9 kg/m2 (11/22/18 9:07 AM) BMI Percentile 6.05 % 3 (11/22/18 9:07 AM) 1Result Comment: Automatically calculated as a result of charting a height of 157.4 cm. 2Result Comment: Automatically calculated as a result of charting a height of 157.4 cm. 3Result Comment: Automatically calculated as a result of charting a BMI of 17.9 Problem List Condition Effective Dates Status Health Status Inform ant Pars tensa central perforation(Confirmed) Active Conductive hearing loss(Confirmed) Active Disorder of skin of vulva(Confirmed) 11/28/11 Active Allergies, Adverse Reactions, Alerts Substance Reaction Severity Status Dairy Digest Active Gluten Active Reason for Visit follow up ear - no audio
--- OUTSIDE RECORDS SUMMARY | 2022-12-17 02:29 | XMS_ITS | Summary of Care ---
Author Name Unknown Organization [facility] is Address [address] [place] [address]- Care Team Providers Care Front End Alignment Specialist Name Role Phone Stevo Mclain Primary Care Physician [phone] Encounter [facility] Date(s): 06/29/17 - 06/29/[address] [address]- Discharge Diagnosis: Conductive hearing loss Discharge Diagnosis: Pars tensa central perforation Discharge Disposition: Home/Self Care Attending Physician: Edson Bernal MD Admitting Physician: Edson Bernal MD Referring Physician: Stevo Mclain Vital Signs Most recent to oldest [Reference Range]: 1 Chief Complaint follow up (06/29/17 9:15 AM) Concerns about Pain No (06/29/17 9:15 AM) Weight 45.5 kg (06/29/17 9:15 AM) DOSING WEIGHT 45.500 kg (06/29/17 9:15 AM) Problem List Condition Effective Dates Status [...] available for this section Reason for Visit Annual follow up
--- OUTSIDE RECORDS SUMMARY | 2022-12-17 02:29 | XMS_ITS | Summary of Care ---
Author Name Unknown Organization [facility] is Address [address] [place] [address]- Care Team Providers Care Residential Lawn Specialist Name Role Phone Stevo Mclain Primary Care Physician Encounter [email or web address] Date(s): 05/11/18 - 05/11/[address] [address]- Encounter Diagnosis Otalgia(Discharge Diagnosis) - 05/11/18 Discharge Disposition: Home/Self Care Attending Physician: Edson Bernal MD Admitting Physician: Edson Bernal MD Referring Physician: Stevo Mclain Vital Signs Most recent to oldest [Reference Range]: 1 Chief Complaint follow up (05/11/18 1:41 PM) Vital Signs Comments right ear (05/11/18 1:41 PM) Concerns about Pain Yes (05/11/18 1:41 PM) Weight 46.1 kg (05/11/18 1:41 PM) DOSING WEIGHT 46.100 kg (05/11/18 1:41 PM) Problem List Condition Effective Dates Status Health Status Inform ant Pars tensa central perforation(Confirmed) Active Conductive hearing loss(Confirmed) Active Disorder of skin of vulva(Confirmed) 11/28/11 Active Allergies, Adverse Reactions, Alerts Substance Reaction Severity Status Dairy Digest Active Gluten Active Medications clotrimazole 1% topical solution See Instructions, # 15 mL, 0 Refill(s), Instill 3 drops in the affected ear(s) three times daily asdirected., Javier Cmunity/[facility] Start Date: 05/11/18 Status: Ordered Reason for Visit Ear infections. Pt being followed by audio for HAs
[2022-12-17 02:42] LABS: Basophils Absolute Auto 0.03 K/uL (0.00-0.30); Basophils Percent Auto 0.3 % (0.0-3.0); Eosinophils Absolute Auto 0.22 K/uL (0.00-0.50); Eosinophils Percent Auto 2.3 % (0.0-7.0); Hematocrit 36.9 % (33.0-51.0); Hemoglobin* 13.2 gm/dL (12.0-16.0); Immature Granulocytes Abs Auto 0.01 K/uL (0.00-0.30); Immature Granulocytes Pct Auto 0.1 %; Lymphocytes Absolute Auto 3.07 K/uL (0.90-2.90); Lymphocytes Percent Auto 32.7 % (20-44); Mean Corpuscular HGB Conc 36 gm/dL (32-36); Mean Corpuscular Hemoglobin 32 pg (26-34); Mean Corpuscular Volume 89 fL (80-100); Monocytes Percent Auto 10.4 % (0.0-11.0); Neutrophils Absolute Auto 5.09 K/uL (1.7-7.0); Neutrophils Percent Auto 54.2 % (42.0-72.0); Platelet Count* 339 K/uL (140-440); Red Blood Count 4.16 m/uL (4.00-5.20)
[2022-12-17 02:44] LABS: Slide Review Reflex No
[2022-12-17 02:55] LABS: Chloride* 106 mmol/L (96-114); Potassium* 3.6 mmol/L (3.6-5.1); Sodium* 140 mmol/L (135-149)
[2022-12-17 02:58] LABS: Blood Urea Nitrogen* 14 mg/dL (5-24); Calcium* 9.1 mg/dL (8.4-10.6); Carbon Dioxide* 27 mmol/L (20-32); Creatinine* 0.7 mg/dL (0.5-1.5); Estimated Glomerular Filt Rate 125 ml/min; Glucose* 106 mg/dL (60-115)
[2022-12-17 03:20] VITALS: PULSE 78; RESP 18; O2SAT 95
== END 2022-12-17 04:21 | disposition home or self-care (01) ==
PROVIDERS: Emergency Provider Family Medicine; PCP Physician Assistant Medical
DX: N20.1 Calculus of ureter (principal)
CPT/HCPCS: 36415; 74176; 80048; 81003; 81015; 84703; 85025; 87086; 87186; 96374; 96375; 99283; 99284; J1885; J2405

== ENCOUNTER 2024-08-09 10:25 | Outpatient (CLI) | payer BC, SELFPAY ==
[2024-08-12 14:02] LABS: HPV Source Cervical; HPV, High Risk by TMA Not Detected
== END 2024-08-09 10:26 | disposition home or self-care (01) ==
PROVIDERS: PCP Physician Assistant Medical; Visit Provider Obstetrics & Gynecology
DX: Z12.4 Encounter for screening for malignant neoplasm of cervix (principal)
CPT/HCPCS: 87624; 87625; 88141; 88142

== ENCOUNTER 2024-09-06 06:05 | Day surgery (SDC) | payer BC, SELFPAY ==
[2024-09-06] VITALS (11 sets, daily range): BP systolic 91–115; BP diastolic 52–95; PULSE 73–91; RESP 12–16; TEMP 36.4–37.1; O2SAT 96–99; BMI 21.2
[2024-09-06 06:41] LABS: Ur HCG Qualitative* Negative (Negative)
[2024-09-06] MEDS: SODIUM CHLORIDE 0.9 % (FLUSH) 10 ML SYRINGE IVF (06:44)
[2024-09-06] MEDS: 0.9 % SODIUM CHLORIDE 500 ML 500 ML 100 ML IV (06:45)
--- NOTE | 2024-09-06 07:06 | W.PM.H&PU ---
History & Physical Update History & Physical Update H&P Reviewed and patient assessed: The following changes are noted below H&P Updates: I added hydrodistention of the bladder to her consent form: treatment for bladder pain syndrome/interstitial cystitis
[2024-09-06 07:08] LABS: Hemoglobin* 13.8 gm/dL (12.0-16.0)
--- NOTE | 2024-09-06 07:32 | P.PCN_ITS ---
Procedure Note Time Seen by Provider: 08:37 Date Seen: 09/06/24 Date of procedure: 09/06/24 Will [facility] bill your pro fee for this procedure?: Yes Procedure: Preoperative diagnosis: 23-year-old with undesired fertility, bladder pain syndrome, chronic pelvic pain, vaginal pain syndrome Postoperative diagnosis: Same. Procedure: Laparoscopic bilateral salpingectomy, hydrodistention of the bladder Anesthesia: General endotracheal, local Surgeon: Cheryl Foote MD Telemetry Registered Nurse: Mercy Bradley MD EBL: 10 mL Urine output: 200 mL clear urine IVF: 450 ml Specimen: Bilateral fallopian tubes to pathology. Findings: On exam under anesthesia: The uterus was anteverted, less than 8 week size, mobile, without masses or nodularity palpable. Adnexa were without mass or fullness bilaterally. The uterus sounded to 7.5 cm. On laparoscopy: The uterus, bilateral fallopian tubes and ovaries all appeared normal. There is some adhesions of the cecum to the left pelvic sidewall that obscured the appendix. The liver edge and gallbladder were normal. Procedure: Renata was taken to the operating room where general anesthetic was found to be adequate. She was placed in the dorsal lithotomy position and an exam under anesthesia was performed with findings stated above. She was then prepped and draped in a normal sterile manner. A Carlin catheter was then placed. A bivalve speculum was then placed in the vaginal canal to visualize the cervix. The anterior lip of the cervix was grasped with an a long Allis clamp. The cervix was dilated to Hegar 6. Uterus was sounded to7.5 cm. A Hulka uterine manipulator was then placed. Attention was then turned to performing the laparoscopic portion of the procedure. All incisions were injected with 0.5% Marcaine prior to incision. A vertical 5 mm infraumbilical, incision, was made and a 5 mm trocar placed under direct visualization with the laparoscope. The abdomen was then insufflated with carbon dioxide gas to a pressure of 15 mm of mercury. To bilateral lower swathi drant trocars were then placed under direct visualization. Both were placed approximately 3-4 finger breaths medial to the ischial crests. The right trocar was 5 mm the left trocar was 11 mm. A diagnostic laparoscopy was then performed with findings stated above. The left fallopian tube was grasped with a sliding grasper. The left fallopian tube was removed from the broad ligament using the Halo dissecting forceps starting at the fimbriated end of the tube. Sequential pedicles were then formed to the level of the cornua. The tube was then removed at the cornua and removed from the abdomen through the 11 mm port. The right fallopian tube was removed in a similar manner. Excellent hemostasis was noted of all pedicles. The trocars were then removed under direct visualization. The CO2 gas was allowed to escape the infraumbilical port prior to its removal. The bladder was back-filled via the carlin catheter with 1,000mL of saline, the carlin clamped for 10 minutes then the fluid was drained. All incisions were reapproximated using 4-0 Monocryl in a running subcuticular manner. Exofin skin adhesive was then applied and adhesive dressings applied over each incision. The uterine manipulator and Carlin catheter were removed. The patient tolerated this procedure well. Sponge, lap and instrument counts were correct x2 at the end of the procedure and the patient was taken to the recovery area in stable condition.
[2024-09-06] MEDS: BUPIVACAINE 0.5% 30 ML INJECTION (07:55)
--- NOTE | 2024-09-06 08:35 | W.ANESCHARGE ---
Anesthesia Charges Start Date/Time Anesthesia Start Date: 09/06/24 Anesthesia Start Time: 07:20 Stop Date/Time Anesthesia Stop Date: 09/06/24 Anesthesia Stop Time: 08:35
[2024-09-06] MEDS: OXYCODONE 5 MG TABLET PO (09:11)
[2024-09-06] MEDS: ACETAMINOPHEN 500 MG TABLET 1000 MG PO (09:11)
--- NOTE | 2024-09-06 10:48 | W.ANESCHARGE ---
Anesthesia Charges Start Date/Time Anesthesia Start Date: 09/06/24 Anesthesia Start Time: 07:20 Stop Date/Time Anesthesia Stop Date: 09/06/24 Anesthesia Stop Time: 08:35
== END 2024-09-06 10:02 | disposition home or self-care (01) ==
PROVIDERS: PCP Physician Assistant Medical; Visit Provider Obstetrics & Gynecology
PROC: (CPT 58661; principal; 2024-09-06 07:15)
DX: Z30.2 Encounter for sterilization (principal); R10.2 Pelvic and perineal pain; R39.82 Chronic bladder pain; G89.4 Chronic pain syndrome
CPT/HCPCS: 58661; 52260; 00840; 36415; 81025; 85018; 86850; 86900; 86901; 88302; A9270; J0330; J0665; J1100; J1885; J2250; J2405; J2704; J3010; J3490; J7030